=== PATIENT | female | born 1975 | race Caucasian/White ===

== ENCOUNTER 2020-08-21 05:12 | Day surgery (SDC) | payer BC ==
[2020-08-20 10:55] VITALS: BMI 25.4
[2020-08-21] MEDS ORDERED: MIDAZOLAM HCL 2 MG/2 ML SINGLE DOSE VIAL ONE (12:10)
[2020-08-21] MEDS ORDERED: oxyCODONE HCL 5 MG TABLET PO PRN (12:11)
[2020-08-21] MEDS ORDERED: ONDANSETRON 4 MG/2 ML VIAL IVPUSH PRN (12:11)
[2020-08-21] MEDS ORDERED: LACTATED RINGERS SOLUTION 1,000 ML IV SCH (12:15)
[2020-08-21] MEDS ORDERED: ceFAZolin 2 GRAM PREMIX BAG IVPB ONE (12:40)
[2020-08-21] MEDS ORDERED: LIDOCAINE HCL 1%, 10 MG/ML (20ML VIAL) NR ONE (12:47)
[2020-08-21] MEDS ORDERED: BUPIVACAINE HCL/PF 0.5% (5 MG/ML) 30 ML VIAL IJ ONE (13:47)
[2020-08-21 16:23] VITALS: BP 105/63; PULSE 46; TEMP 97.1
--- NOTE | 2020-08-21 18:53 | OP ---
DATE OF OPERATION: 08/21/2020 PREOPERATIVE DIAGNOSIS: Right foot hallux abductovalgus. POSTOPERATIVE DIAGNOSIS: Right foot hallux abductovalgus. PROCEDURE: Right foot Silver bunionectomy, postoperative injection, layered closure. ANESTHESIA: Local MAC. Lidocaine plain 12 mL was given in and around the proposed operative site. HEMOSTASIS: Achieved with meticulous dissection, use of cautery and an ankle tourniquet at 250 mmHg. ESTIMATED BLOOD LOSS: 1 mL. DESCRIPTION OF PROCEDURE: The patient was brought to the operating room and placed supine on the operating room table. After adequate IV sedation was administered, the previously mentioned local infiltrative block was given, consisting of one-to-one 1% lidocaine plain and 0.5% Marcaine plain. A total of 12 mL were used. The foot was then prepped and draped in the usual aseptic fashion. Upon exsanguination of the right foot with an Esmarch bandage and placement of padding on the ankle, the pneumatic ankle tourniquet was inflated to 250 mmHg. The surgery began in the following manner: Attention was then directed to the dorsomedial aspect of the 1st metatarsophalangeal joint of the right foot, where a linear incision was made approximately 5 cm in length. The incision was deepened through the subcutaneous tissue using both sharp and blunt dissection. Care was taken to identify and retract all vital neural and vascular structures. All bleeders were cauterized as necessary. At this time, an L-shaped capsulotomy was performed at the dorsomedial aspect of the 1st metatarsophalangeal joint. The periosteal and capsular structures were then carefully dissected free of the osseous attachments and reflected medially and laterally, thus exposing the head of the 1st metatarsal and the base of the shaft of the 1st proximal phalanx at the operative site. The head of the metatarsal was noted to be hypertrophied on both its medial and dorsal aspects, and there was mild degeneration of cartilage at the metatarsal head. Intracapsular lateral release was not performed at this time. At this time, using a sagittal bone saw, the medial prominence was resected and pulled from the operative field. This was then repeated on the dorsal aspect, thus removing the dorsal spur of the 1st metatarsal head. This small piece of bone was removed from the operative field. The sagittal saw was used several more times to smooth the contour of the metatarsal head in both its dorsal and medial aspects to the satisfaction of the surgeon. At this time copious irrigation was performed in and around the operative site with normal saline. The medial capsule was then reapproximated with 2-0 Vicryl in simple suture fashion. The remaining periosteal and capsular structures were then reapproximated with 4-0 Vicryl. The subcutaneous tissue was then reapproximated with 4-0 Vicryl, and the skin was reapproximated with 4-0 nylon in a horizontal mattress suture. Then 10 mL of 0.5% Marcaine plain was given in and around the operative site at this time. The incision was dressed with Adaptic, gauze, Rishi and an Cory bandage with minimal compression. The pneumatic ankle tourniquet was then deflated and a prompt hyperemic response was noted to all the digits of the right foot. The patient tolerated the above procedure and anesthesia well, and left the operating room to the recovery are in good condition, with vital signs stable and neurovascular status intact. Capillary filling at this time was noted to be less than 3 seconds to all the digits of the right foot. The patient was given postoperative instructions, followup appointment and appropriate medications. Red Peguero DPM dictating for HUSSAIN Chávez DPM /[id number]
--- NOTE | 2020-08-26 16:01 | PATH ---
Surgical Pathology Report Patient Name: MARGIE PRABHAKAR [facility]. Rec. #: [id number] /Age/Gender: 1975 (Age: 44) / F Account: [id number] Location: [facility] SURGICAL Taken: 08/21/2020 Received: 08/24/2020 Reported: 08/26/2020 Physicians: Luis Wilcox DPM Specimen(s) Received RIGHT FOOT BUNION Clinical History Right foot bunion Final Diagnosis RIGHT FOOT BUNION, BUNIONECTOMY: PORTIONS OF BONE WITH FATTY MARROW SHOWING FOCAL DEGENERATIVE CHANGE. Electronically Signed Forrest Turner M.D. Gross Description Received in formalin labeled "right foot bunion," are 3 baldwin-yellow portions of bone ranging from 1.7 x 1.0 x 0.2 cm to 1.8 x 1.5 x 0.2 cm. Sludge Control Operator sections are submitted in one, following decalcification. DL/08/24/2020 saudi/08/24/2020
== END 2020-08-21 15:00 | disposition home or self-care (01) ==
LOC: JASU-SURG 05:12
PROVIDERS: ATTEND Podiatrist Foot Surgery
PROC: 0QSN04Z Reposition Right Metatarsal with Internal Fixation Device, Open Approach (ICD-10-PCS; principal; 2020-08-21 13:00)
DX: M20.11 Hallux valgus (acquired), right foot (principal); M21.611 Bunion of right foot
CPT/HCPCS: 81025; 88304-TC; 88311-TC